=== PATIENT | female | born 1950 | race Two or more races ===

== ENCOUNTER → 2017-07-25 | Emergency (ER) | payer OTHER ==
[~2017-07-25] VITALS: Ht 149.9 cm; Wt 72.6 kg
[~2017-07-25] MED LIST: CLOPIDOGREL BIS75 MG PO; CRESTOR10 MG PO; FOSAMAX70 MG; FUROSEMIDE20 MG; GARAMYCIN OPHT3.5 GM OP; LASIX20 MG; LASIX20 MG PO; LIPITOR20 MG; LISINOPRIL10 MG PO; MEDROLPACK PO; PLAVIX75 MG; SIMVASTATIN20 MG PO; TESSALON PERLE100 MG; VASOTEC20 M1; XOPENEX0.63 MG/3 IH
== END | disposition home or self-care (01) ==
LOC: ER 11:12
DX: J09.X2 Influenza due to identified novel influenza A virus with other respiratory manifestations (principal); J22 Unspecified acute lower respiratory infection

== ENCOUNTER 2017-10-31 09:25 | Outpatient (CLI) | payer OTHER | END 2017-10-31 09:27 | disposition home or self-care (01) | LOC: LAB 09:25 | DX: M54.5 Low back pain (principal); R30.0 Dysuria ==

== ENCOUNTER 2017-10-31 09:52 | Outpatient (CLI) | payer OTHER | END 2017-10-31 09:55 | disposition home or self-care (01) | LOC: SONOGRAMA 09:52 | DX: M54.5 Low back pain (principal); I11.9 Hypertensive heart disease without heart failure; R32 Unspecified urinary incontinence; R30.0 Dysuria ==

== ENCOUNTER 2017-11-03 22:06 | Inpatient (IN) | payer OTHER ==
[~2017-11-03] VITALS: Ht 162.6 cm; Wt 81.6 kg
== END 2017-11-13 11:33 | disposition designated cancer center or children's hospital (05) | DRG 280 ==
LOC: ER 22:06 → ICU-2 11-04 08:41 → ICU 11-08 19:08 → MEDI 11-11 14:01
PROC: 3E0F7GC Introduction of Other Therapeutic Substance into Respiratory Tract, Via Natural or Artificial Opening (ICD-10-PCS; principal; 2017-11-04)
PROC: 4A033R1 Measurement of Arterial Saturation, Peripheral, Percutaneous Approach (ICD-10-PCS; 2017-11-04)
PROC: BW24ZZZ Computerized Tomography (CT Scan) of Chest and Abdomen (ICD-10-PCS; 2017-11-04)
PROC: 5A09557 Assistance with Respiratory Ventilation, Greater than 96 Consecutive Hours, Continuous Positive Airway Pressure (ICD-10-PCS; 2017-11-04)
PROC: B246ZZZ Ultrasonography of Right and Left Heart (ICD-10-PCS; 2017-11-04)
PROC: C23GYZZ Positron Emission Tomographic (PET) Imaging of Myocardium using Other Radionuclide (ICD-10-PCS; 2017-11-07)
PROC: B54PZZZ Ultrasonography of Bilateral Upper Extremity Veins (ICD-10-PCS; 2017-11-08)
PROC: 4A12X4Z Monitoring of Cardiac Electrical Activity, External Approach (ICD-10-PCS; 2017-11-11)
DX: I11.0 Hypertensive heart disease with heart failure (principal); J96.02 Acute respiratory failure with hypercapnia; I21.4 Non-ST elevation (NSTEMI) myocardial infarction; J44.1 Chronic obstructive pulmonary disease with (acute) exacerbation; I16.1 Hypertensive emergency; J98.11 Atelectasis; J45.41 Moderate persistent asthma with (acute) exacerbation; J90 Pleural effusion, not elsewhere classified; I25.10 Atherosclerotic heart disease of native coronary artery without angina pectoris; E78.4 Other hyperlipidemia; I50.23 Acute on chronic systolic (congestive) heart failure; I34.0 Nonrheumatic mitral (valve) insufficiency

== ENCOUNTER → 2017-12-01 | Emergency (ER) | payer OTHER ==
[~2017-12-01] VITALS: Ht 152.4 cm; Wt 85.7 kg
== END | disposition home or self-care (01) ==
LOC: ER 11:13 → CPU-OBS 12:00
DX: R07.89 Other chest pain (principal); J44.9 Chronic obstructive pulmonary disease, unspecified

== ENCOUNTER 2018-01-31 09:55 | Outpatient (CLI) | payer OTHER | END 2018-01-31 10:04 | disposition home or self-care (01) | LOC: MAMO-SONO 09:55 | DX: Z12.31 Encounter for screening mammogram for malignant neoplasm of breast (principal); Z87.898 Personal history of other specified conditions; Z12.39 Encounter for other screening for malignant neoplasm of breast ==

== ENCOUNTER 2018-02-13 09:07 | Outpatient (CLI) | payer OTHER | END 2018-02-13 09:32 | disposition home or self-care (01) | LOC: NUCLEAR 09:07 | DX: M81.0 Age-related osteoporosis without current pathological fracture (principal); Z13.820 Encounter for screening for osteoporosis ==